=== PATIENT | female | born 1960 | race Two or more races ===

== ENCOUNTER 2020-03-28 00:55 | Emergency (ER) | payer BC ==
[~2020-03-28] VITALS: Ht 157.5 cm; Wt 62.6 kg
--- NOTE | 2020-03-28 01:20 | NUR ---
pt bibself epixtasis [id number] r nostril, to er bed 2 awaiting md esquivel
--- NOTE | 2020-03-28 02:55 | NUR ---
Patient discharged to home in stable condition. Written and verbal after care instructions given. Patient verbalizes understanding of instruction.
[2020-03-28 03:01] VITALS: BP 143/117
== END 2020-03-28 03:01 | disposition home or self-care (01) ==
LOC: ER 00:55
DX: R04.0 Epistaxis (principal)